=== PATIENT | female | born 2000 | race Two or more races ===

== ENCOUNTER → 2023-01-13 | Emergency (ER) | payer OTHER, MEDICAID ==
[~2023-01-13] VITALS: Ht 172.7 cm; Wt 64.4 kg
[2023-01-13 09:47] VITALS: BP 125/87
== END | disposition home or self-care (01) ==
LOC: ER 09:24
DX: O26.892 Other specified pregnancy related conditions, second trimester (principal); Z3A.16 16 weeks gestation of pregnancy
CPT/HCPCS: 76805; 76817